=== PATIENT | female | born 1965 | race Caucasian/White ===

== ENCOUNTER 2024-04-14 07:14 | Outpatient (RCR) | payer BC, SELFPAY ==
[2024-03-15 13:06] VITALS: BMI 26.6
== END 2024-05-25 12:49 | disposition home or self-care (01) ==
LOC: ANHWOC 07:14
PROVIDERS: PCP Nurse Practitioner Family; Visit Provider Nurse Practitioner Family
DX: S81.801A Unspecified open wound, right lower leg, initial encounter (principal)
CPT/HCPCS: 99213; 99214; A9270; G0463